=== PATIENT | female | born 1985 | race Caucasian/White ===

== ENCOUNTER 2018-08-22 03:08 | Inpatient (IN) ==
--- NOTE | 2018-08-22 03:06 | OB/GYN History & Physical ---
Date of Encounter: 08/22/18 Time of Encounter: 03:01 Assessment and Plan (1) 39 weeks gestation of Current visit: Yes Status: Acute Patient admitted for spontaneous labor. Complete and +2 on arrival to unit (2) Spontaneous onset of labor Current visit: Yes Status: Acute Admit for labor Imminent delivery History of Present Illness Chief complaint: Spontaneous Labor HPI: Ms. Romero is a 33 year old female at 39 weeks 5 days presents to labor and delivery with complaints of labor. She states contractions started at 6 PM last night. On arrival to unit she was found to be complete with an urge to push. She endorses positive movement denies rupture of membranes, moderate amount of bloody show. This has been uncomplicated. Her regular OB provider is Dr. Garcia. Blood type O+ GBS negative Rubella immune RPR nonreactive HBsAg negative Varicella immune Past Med Surg Social Fam HX - Past Medical History Medical history: no medical history Psychiatric history: no psych history - Past Surgical History Additional surgical history: right knee surgery - Social History Smoking Status: Former smoker Smokeless Tobacco Status: No Alcohol use: none Drug use: none Occupational status: employed Current living situation: Home - Independent, With Family Activity Level: Independent ambulation Recent Out of Country Travel Within the Last 8 Weeks: No Exposure or Possible Exposure to Illness During Travel: No - Family History Mother Adopted: No Family Member Ethnicity: Non- Living Status: Still Living Hx Family Cardiac Disorders: Yes (HTN) Hx Family Respiratory Disorders: No Hx Family Cancer: No Hx Family GI Disorders: No Hx Family Endocrine Disorder: No Hx Family Neuromuscular Disorders: No Hx Family Neurologic Disorders: No Hx Family HEENT Disorders: No Hx Family Autoimmune Disorders: No Obstetrical History - Pregnancies : 3 Para: 1 Term: 1 : 0 Ab's: 1 Livin Medications and Allergies Flintstones Gummies 1 tab PO DAILY 07/31/16 [History] Nexium 20 mg pe PO DAILY 07/31/16 [History] Allergy/AdvReac Type Severity Reaction Status Date / Time No Known Allergies Allergy Verified 08/22/18 02:43 Exam - Constitutional Constitutional: well developed, well nourished - Neck Neck exam: full ROM, normal inspection - Lungs Respiratory exam: CTAB - Cardiovascular Cardiovascular exam: RRR, +S1, +S2 - Breasts Breast: bilateral: normal - Abdomen Abdomen: Present: bowel sounds normal, gravid, non tender - Vulva Vulva: bilateral: normal - Vagina Vagina: Present: normal moisture - Cervix Dilation: 10 Effacement: 100 Station: +2 - Uterus Uterus exam: Present: normal size - Anus/Rectum Anus/Rectum: Present: normal perianal skin - Comments Comments: FHR 155 bpm, intermittent tracing due to patient status. Results All other labs normal. - VTE Reasons for not Prescribing Prophylaxis: Treatment not Indicated - Low risk for VTE
[~2018-08-22 03:08] MED LIST: *HR* Oxytocin 10 UNIT/ML VIAL IM ONE
--- NOTE | 2018-08-22 03:18 | OB/GYN Procedure Note ---
Delivery - Delivery Date: 08/22/18 Provider: Cynthia Powers Intrapartum events: none Delivery induction: none Delivery augmentation: rupture of membranes Delivery monitor: external FHT, external uterine Anesthesia: none Quantitated Blood Loss: 100 - Infant (s) A Delivery Date: 08/22/18 Infant Delivery Time: 02:07 Presentation: vertex Position: ADALGISA Route of delivery: Gender: Female Viability: Viable Pounds: 6 Ounces: 12 Weight Gram: 3125 kg Shoulder Dystocia: not encountered Specimens collected: cord blood Placenta: spontaneous Cord: 3 umbilical vessels - Repair Episiotomy: none Laceration Description: Superficial - Complications Delivery complications: none Delivery comments: Called to room for delivery. Under maternal effort, spontaneous delivery of viable female infant over intact perineum. Superficial perineal laceration noted, hemostatic therefore not repaired. Infant placed on maternal abdomen for drying and stimulation. Cord clamped and cut after pulsation ceased. IM Pitocin given due to patient not having IV access. Spontaneous delivery of intact placenta, EBL 100 mL's. No nuchal cord, shoulder dystocia, or meconium encountered. Mother and in kangaroo care for 2 hour recovery. - Disposition Mom disposition: stable in LDR [place] disposition: stable in LDR
[2018-08-22] MEDS ORDERED: Ibuprofen 600 MG TABLET PO ONE (04:46)
[2018-08-22 04:49] LABS: Basophils % 0.2 %; Eosinophils # 0.1 K/mcL (0.0-0.6); Eosinophils % 0.3 %; Hematocrit 38.9 % (35.3-44.9); Hemoglobin 13.4 g/dL (11.5-15.4); Immature Granulocytes % 0.8 % (0-4); Lymphocytes # 0.9 K/mcL (0.6-4.6); Mean Corpuscular HGB Conc 34.4 g/dL (31.6-35.5); Mean Corpuscular Hemoglobin 32.1 pg (28.0-33.3); Mean Corpuscular Volume 93.3 fL (83.0-100.0); Mean Platelet Volume 9.3 fL (9.4-12.4); Monocytes % 4.4 %; Neutrophils # 20.8 K/mcL (1.6-8.9); Platelet Count 238 K/mcL (140-400); Red Blood Count 4.17 M/mcL (3.82-4.97); Red Cell Distribution Width 12.3 % (11.5-14.5); Segmented Neutrophils % 90.3 %
[2018-08-22] MEDS ORDERED: Acetaminophen 325 MG TABLET PO PRN (06:45)
[2018-08-22 06:57] LABS: Amphetamine Screen,Urine Negative ng/mL (Cutoff=1000); Barbiturate Screen,Urine Negative ng/mL (Cutoff=200); Benzodiazepines Screen,Urine Negative ng/mL (Cutoff=300); Cannabinoid Screen,Urine Negative ng/mL (Cutoff = 50); Cocaine Screen,Urine Negative ng/mL (Cutoff= 300); Opiate Screen,Urine Negative ng/mL (Cutoff=300); Phencyclidine Screen,Urine Negative ng/mL (Cutoff=25)
[2018-08-22] MEDS: Prenatal Vit/FA 1 EACH TABLET PO SCH (08:14)
[2018-08-22] MEDS ORDERED: *HR* Oxytocin 10 UNIT/ML VIAL IM ONE (13:05)
[2018-08-22 15:40] VITALS: BP 128/77
[2018-08-22] MEDS: Ibuprofen 600 MG TABLET PO PRN (15:54)
--- NOTE | 2018-08-23 10:02 | Discharge Summary ---
Date of Encounter: 08/23/18 Time of Encounter: 09:58 - Discharge Diagnosis (1) Breast feeding status of mother Priority: Secondary Status: Acute Comments: Community resources provided (2) Status post vaginal delivery Priority: Primary Status: Acute Comments: Feeling well Tolerating regular diet Pain well-controlled with by mouth pain meds Ambulating independently Voiding independently Lochia light Passing flatus, no BM yet Vital signs stable Discharge home today - Discharge Medications Prescriptions: Ibuprofen [Motrin] 600 mg PO Q6HR PRN #30 tablet PRN Reason: Cramping Docusate [Colace] 100 mg PO BID #30 capsule Home Medications: Flintstones Gummies 1 tab PO DAILY 07/31/16 [History] Nexium 20 mg pe PO DAILY 07/31/16 [History] Acetaminophen [Tylenol] 650 mg PO Q6HR PRN tablet 08/23/18 [Rx] Docusate [Colace] 100 mg PO BID #30 capsule 08/23/18 [Rx] Ibuprofen [Motrin] 600 mg PO Q6HR PRN #30 tablet 08/23/18 [Rx] Allergies/Adverse Reactions: Allergy/AdvReac Type Severity Reaction Status Date / Time No Known Allergies Allergy Verified 08/22/18 02:43 Data Procedures and tests throughout hospitalization: Laboratory Tests 08/22/18 08/22/18 04:00 06:30 WBC 23.0 H RBC 4.17 Hgb 13.4 Hct 38.9 MCV 93.3 MCH 32.1 MCHC 34.4 RDW 12.3 Plt Count 238 MPV 9.3 L Immature Gran % 0.8 Seg Neutrophils % 90.3 Lymphocytes % 4.0 Monocytes % 4.4 Eosinophils % 0.3 Basophils % 0.2 Neutrophils # 20.8 H Lymphocytes # 0.9 Monocytes # 1.0 Eosinophils # 0.1 Basophils # 0.0 Urine Opiates Screen Negative Ur Barbiturates Screen Negative Ur Phencyclidine Scrn Negative Ur Amphetamines Screen Negative U Benzodiazepines Scrn Negative Urine Cocaine Screen Negative U Marijuana (THC) Screen Negative Ur Drug Screen Interp See Below Date of admission: 08/22/18 03:08 Primary care physician: PCP NONE Consults: 08/22/18 06:45 Consult to [employer] [CONS] Routine Comment: Vaginal delivery, consult needed Discharging clinician: Gissel Murphy Anticipated date of discharge: 08/23/18 - Patient Status Disposition: Home, Self-Care Condition: Good Functional capacity at discharge: independent ambulation Overall status at discharge: patient is progressing back to baseline - Discharge Instructions Follow Up With: NONE,PCP [Primary Care Provider] - Braulio Garcia DO [Partnered Physician] - - Diet and Activity Activity: increase activity as tolerated Diet: regular diet Hospital Course Procedures: s/p Reason for admission: active labor, IUP at term Delivery: Episiotomy: none Laceration: none Other procedures: none complications: none Discharge diagnosis: IUP at term delivered [place] baby: female Hospital course: Patient presented to labor and delivery in spontaneous labor. Her labor progressed without complication to complete she delivered a viable female . Superficial lacerations. EBL was 100 mL. course has been consultative. She is breast-feeding. She will bits discharged home today in stable condition. Time Attestation: Total time spent providing and/or coordinating discharge services: Time Spent: Less than 30 minutes Exam - Constitutional Vitals: Temp Pulse Resp BP Pulse Ox 98.9 F 81 16 128/77 98 08/22/18 15:38 08/22/18 15:38 08/22/18 15:38 08/22/18 15:38 08/22/18 06:30 General appearance IM: A&O X 3 - Respiratory Respiratory exam: Present: CTAB - Cardiovascular Cardiovascular exam IM: Present: RRR, +S1, +S2 - GI/Abdominal GI/Abdominal exam IM: normal bowel sounds, no peritoneal signs Incision: normal, intact - Rectal Rectal exam: deferred - Uterine Tone: Firm Uterus Position: 1 Finger Below Umbilicus, Midline - Extremities Exam Extremities exam IM: Present: normal capillary refill, normal inspection, radial pulses palpable and symmetrical - Neurological Exam Neurological exam: alert, CN II-XII intact, normal gait, oriented X3, reflexes normal, no focal deficits, strengths equal and symetr throughout - Psychiatric Additional comments: Patient denies history of anxiety or depression. S/sx of PPD discussed with patient and partner and they both verbalized understanding of when to seek help. - Skin Additional comments: Breasts: Soft, nontender; nipples intact without erythema
[2018-08-23] MEDS: Prenatal Vit/FA 1 EACH TABLET PO SCH (10:31)
[2018-08-23] MEDS: Ibuprofen 600 MG TABLET PO PRN (10:34)
== END 2018-08-23 11:57 | disposition home or self-care (01) | DRG 807 ==
LOC: 1NENULAB → 1NENUOBS 05:16
PROVIDERS: ADMIT Registered Nurse; ATTEND Registered Nurse